=== PATIENT | female | born 1975 | race Caucasian/White ===

== ENCOUNTER 2017-12-21 11:29 | Day surgery (SDC) | payer OTHER, SELFPAY ==
[2017-12-21 11:46] VITALS: BP 146/90; PULSE 101; RESP 20; TEMP 35.8; O2SAT 98; BMI 68.4
--- NOTE | 2017-12-21 12:53 | RAD_ITS ---
STUDY: X-RAY - LUMBAR SPINE REASON FOR EXAM: Female, 42 years old. Chronic back pain. TECHNIQUE: Single coned-down view(s) of the lumbar spine was obtained intraoperatively. COMPARISON: None FINDINGS: Fluoroscopic services provided for epidural injection. RAD/Spine 1 View Any Level IMPRESSION: Fluoroscopic services provided for epidural injection. Electronically Signed: Edilson Clarke MD at 15:39 EDT Tel [phone], Service support ,
[2017-12-21] MEDS: Triamcinolone Acetonide 40 MG/ML Vial (12:59)
[2017-12-21 13:07] VITALS: BP 126/71; BP 146/90; PULSE 98; RESP 16; TEMP 36.2; O2SAT 100
[2017-12-21 13:12] VITALS: BP 137/78; BP 146/90; PULSE 92; RESP 16; O2SAT 100
[2017-12-21 13:17] VITALS: BP 146/90; BP 159/75; PULSE 98; RESP 16; O2SAT 100
[2017-12-21 13:22] VITALS: BP 143/78; BP 146/90; PULSE 94; RESP 16; TEMP 36.8; O2SAT 100
[2017-12-21 13:35] VITALS: BP 146/90
== END 2017-12-21 13:37 | disposition home or self-care (01) ==
LOC: SDC 11:31 → AC 11:33
PROVIDERS: Family Provider Internal Medicine; PCP Internal Medicine; Visit Provider Anesthesiology Pain Medicine
PROC: 3E0S3BZ Introduction of Anesthetic Agent into Epidural Space, Percutaneous Approach (ICD-10-PCS; CPT 62322; principal; 2017-12-21 12:10)
DX: M46.1 Sacroiliitis, not elsewhere classified (principal); M51.17 Intervertebral disc disorders with radiculopathy, lumbosacral region; G89.4 Chronic pain syndrome; E66.01 Morbid (severe) obesity due to excess calories; Z68.44 Body mass index [BMI] 60.0-69.9, adult; Z79.899 Other long term (current) drug therapy; Z87.440 Personal history of urinary (tract) infections; Z87.891 Personal history of nicotine dependence; Z98.51 Tubal ligation status
CPT/HCPCS: 62323; 64483; 72020; J7120

== ENCOUNTER → 2018-08-07 17:08 | Outpatient (CLI) | payer OTHER, SELFPAY ==
[2018-08-07 18:50] LABS: Amphetamine Urine VISTA NEGATIVE (<1000 ng/mL); Barbiturate Urine VISTA NEGATIVE (< 200 ng/mL); Benzodiazepine Urine VISTA NEGATIVE (< 200 ng/mL); Cocaine Urine VISTA NEGATIVE (< 300 ng/mL); Ecstacy Urine VISTA NEGATIVE (< 500 ng/mL); Methadone Urine VISTA NEGATIVE (< 300 ng/mL); PCP Urine VISTA NEGATIVE (< 25 ng/mL); THC Urine VISTA NEGATIVE (< 50 ng/mL); Vista UDS pH Range 5
== END ==
PROVIDERS: Family Provider Internal Medicine; PCP Internal Medicine; Referring Provider Anesthesiology Pain Medicine; Visit Provider Anesthesiology Pain Medicine
DX: F11.20 Opioid dependence, uncomplicated (principal)
CPT/HCPCS: 80307